=== PATIENT | male | born 1975 | race Caucasian/White ===

== ENCOUNTER 2017-03-29 12:38 | Emergency (ER) | payer MEDICAID ==
[~2017-03-29] VITALS: Ht 185.4 cm; Wt 100.0 kg
[2017-03-29 12:40] VITALS: BP 123/70; PULSE 70; RESP 17; TEMP 98.4; O2SAT 98
[2017-03-29] MEDS ORDERED: ORPHENADRINE INJ 60 MG/2 ML AMP IM ONE (16:00)
[2017-03-29] MEDS ORDERED: KETOROLAC TROMETHAMINE 60 MG/2 ML (IM) VIAL IM ONE (16:00)
[2017-03-29] MEDS ORDERED: ROBA750T PO (16:14)
[2017-03-29] MEDS ORDERED: DICL50TA PO (16:14)
--- NOTE | 2017-03-29 16:15 | PD ---
HPI Chief Complaint: Back/ Neck Pain or Injury Time Seen by Provider: 15:34 Travel History International Travel<30 days: No Contact w/Intl Traveler<30days: No Traveled to known affect area: No History of Present Illness HPI 41 year old male presents to the emergency department for evaluation of right low back pain that started yesterday when he stood up. No traumatic injury. Patient denies any fevers or chills. No loss of bowel or bladder control. No saddle anesthesias. Patient reports history of similar back pain in the past, last time was approximately 2 years ago. Patient took Ibuprofen earlier without improvement. Patient denies any chronic medical problems or takes any medications. No radiation of pain. Movement exacerbates pain. Rest without help alleviate pain. Moderate severity. PFSH Past Medical History Medical History: Denies Significant Hx Tetanus Vaccination: Unknown Influenza Vaccination: No Past Surgical History Other Surgery: Yes (R. KNEE AND R. SHOULDER SURGERY) Social History Alcohol Use: Yes (SOCIAL) Tobacco Use: Yes (1 PPD) Substance Use: No Allergies-Medications (Allergen,Severity, Reaction): Coded Allergies: No Known Allergies (Unverified , 03/29/17) Reported Meds & Prescriptions Reported Meds & Active Scripts Active No Active Prescriptions or Reported Medications Review of Systems Except as stated in HPI: all other systems reviewed are Neg Physical Exam Narrative GENERAL: Well-nourished, well-developed male patient ambulatory. Afebrile., SKIN: Focused skin assessment warm/dry. HEAD: Normocephalic. Atraumatic. EYES: No scleral icterus. No injection or drainage. NECK: Supple, trachea midline. No JVD or lymphadenopathy. CARDIOVASCULAR: Regular rate and rhythm without murmurs, gallops, or rubs. Bilateral radial and pedal pulses are 2+. RESPIRATORY: Breath sounds equal bilaterally. No accessory muscle use. Lungs sounds are clear to auscultation. GASTROINTESTINAL: Abdomen soft, non-tender, nondistended. MUSCULOSKELETAL: No cyanosis, or edema. Straight leg raise is negative bilaterally. Bilateral upper and lower extremity strength 5/5. All extremities are neurovascularly intact. BACK: Nontender without obvious deformity. No CVA tenderness. Patient has tenderness over right lumbar paraspinal musculature. Data Data Last Documented VS Vital Signs Date Time Temp Pulse Resp B/P (MAP) Pulse Ox O2 Delivery O2 Flow Rate FiO2 03/29/17 12:40 98.4 70 17 123/70 (87) 98 Orders Orders Ketorolac Inj (Toradol Inj) (03/29/17 16:00) Orphenadrine Inj (Norflex Inj) (03/29/17 16:00) [facility] Medical Decision Making Medical Screen Exam Complete: Yes Emergency Medical Condition: Yes Medical Record Reviewed: Yes Differential Diagnosis Muscle strain versus muscle spasm versus herniated disc versus sciatica Narrative Course 41-year-old male presents to the emergency department for evaluation of low back pain that started yesterday when he stood up. No traumatic injury. No red flag symptoms. Patient is given Toradol 60 mg IM and Norflex 60 mg IM for pain. Patient will be discharged with a prescription for diclofenac and Robaxin. He is encouraged to follow-up with primary care physician. He is to use a heating pad on low. He verbalizes agreement and understanding. The patient was discharged in stable condition with instructions, including return instructions and follow up instructions. Diagnosis Primary Impression: Low back pain Qualified Codes: M54.5 - Low back pain Referrals: Primary Care Physician call for appointment Patient Instructions: Back Pain (ED), General Instructions Departure Forms: Tests/Procedures, Work Release Enter return to work date: Apr 01, 2017 Additional Instructions: Take diclofenac as directed as needed with food for pain. Do not take with other anti-inflammatories including ibuprofen and naproxen. Take Robaxin as directed as needed. Heating pad on low for 20 minutes 4-5 times daily. Follow-up with your primary care physician. Return to the emergency department for any acute worsening of symptoms. Med/Other Pt SpecificInfo: Prescription(s) given Scripts Methocarbamol (Robaxin) 750 Mg Tab 750 MG PO TID Y for MUSCLE SPASM, #21 TAB 0 Refills Prov: Adela Roberts 03/29/17 Diclofenac Potassium (Diclofenac Potassium) 50 Mg Tab 50 MG PO TID Y for PAIN SCALE 1 TO 10, #21 TAB 0 Refills Prov: Adela Roberts 03/29/17 Disposition: 01 DISCHARGE HOME Condition: Stable Adela Roberts Mar 29, 2017 16:15
[2017-03-29 16:40] VITALS: BP 120/75; PULSE 78; RESP 16; O2SAT 99
== END 2017-03-29 16:40 | disposition home or self-care (01) ==
LOC: NEPD 12:38
DX: M54.5 Low back pain (principal); F17.200 Nicotine dependence, unspecified, uncomplicated
CPT/HCPCS: 96372; 99284; J1885; J2360